=== PATIENT | male | born 1990 | race Caucasian/White ===

== ENCOUNTER 2017-03-08 00:35 | Emergency (ER) | payer OTHER ==
[2017-03-08 00:42] VITALS: BMI 22.4
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
[2017-03-08 01:06] VITALS: BP 135/87
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
[2017-03-08] MEDS ORDERED: NEOSPORIN OINT ONE (01:38)
[2017-03-08] MEDS ORDERED: NEOSPORIN OINT TOP ONE (01:38)
[2017-03-08] MEDS ORDERED: NORCO 10/325 TAB PO ONE (01:51)
[2017-03-08] MEDS ORDERED: NORCO 10/325 TAB ONE (01:51)
== END 2017-03-08 01:54 | disposition home or self-care (01) ==
LOC: ER 00:35
PROC: 0HQ0XZZ Repair Scalp Skin, External Approach (ICD-10-PCS; principal; 2017-03-08)
DX: S01.01XA Laceration without foreign body of scalp, initial encounter (principal); Y08.89XA Assault by other specified means, initial encounter; Y92.149 Unspecified place in prison as the place of occurrence of the external cause; S10.93XA Contusion of unspecified part of neck, initial encounter; S00.83XA Contusion of other part of head, initial encounter
CPT/HCPCS: 12002; 70450; 70486; 72125; 99282; 99283